=== PATIENT | female | born 1950 | race Caucasian/White ===

== ENCOUNTER 2019-10-28 15:22 | Emergency (ER) | payer OTHER ==
[~2019-10-28] VITALS: Ht 162.6 cm; Wt 73.0 kg
[2019-10-28 16:02] VITALS: BP 117/78
[2019-10-28] MEDS ORDERED: cefTRIAXone SOD 1,000 MG VL IM ONE (18:00)
[2019-10-28] MEDS ORDERED: PHENAZOPYRIDINE HCL 100 MG TAB PO ONE (18:00)
[2019-10-28 18:33] LABS: Urine Bacteria NONE SEEN /hpf (None Seen); Urine Blood 1+ /uL (Negative); Urine Hyaline Cast FEW /lpf (0 - 2); Urine Mucus FEW (None Seen); Urine Specific Gravity 1.023 (1.001-1.035); Urine WBC 328 /hpf (0 - 5); Urine WBC Clumps PRESENT /hpf (None Seen)
== END 2019-10-28 18:28 | disposition home or self-care (01) ==
LOC: ER 15:22
DX: N39.0 Urinary tract infection, site not specified (principal)
CPT/HCPCS: 51701; 81001; 87086; 96372; 99284; J0696; 87088